=== PATIENT | female | born 1940 | race Hispanic/Latino ===

== ENCOUNTER 2017-03-08 16:21 | Emergency (ER) | payer MEDICARE, OTHER ==
[2017-03-08 16:30] VITALS: BMI 21.9
[2017-03-08 16:33] VITALS: RESP 18; O2SAT 98
[2017-03-08 18:12] VITALS: BP 159/82; PULSE 62; TEMP 97.4
--- NOTE | 2017-03-08 22:42 | C.PDOC ---
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 Patient states she accidentally tripped, fell, and attempted to break her fall using her right arm. Patient denies head injury/LOC , neck pain, back pain, extremity numbness/weakness, as well as any symptoms initially leading to her fall. Chief Complaint (Nursing): Finger,Hand,&Wrist History Per: Patient History/Exam Limitations: no limitations Onset/Duration Of Symptoms: Hrs Current Symptoms Are (Timing): Still Present Quality: "Pain" Additional History Per: Patient Past Medical History Reviewed: Historical Data, Nursing Documentation, Vital Signs Vital Signs: Last Vital Signs Temp 97.4 F L 03/08/17 18:10 Pulse 62 03/08/17 18:10 Resp 18 03/08/17 18:10 BP 159/82 H 03/08/17 18:10 Pulse Ox 98 03/08/17 22:44 - Medical History PMH: Asthma Surgical History: No Surg Hx Family History: States: Unknown Family Hx - Social History Hx Alcohol Use: No Hx Substance Use: No - Immunization History Hx Tetanus Toxoid Vaccination: No Hx Influenza Vaccination: No Hx Pneumococcal Vaccination: No Review Of Systems Except As Marked, All Systems Reviewed And Found Negative. Musculoskeletal: Positive for: Other (+right wrist pain ). Negative for: Neck Pain, Back Pain Neurological: Negative for: Weakness, Numbness Physical Exam - Physical Exam Appears: Non-toxic, No Acute Distress Skin: Normal Color, Warm, Dry Head: Atraumatic, Normacephalic, No Tenderness, No Swelling, No Abrasion, No Laceration Eye(s): bilateral: Normal Inspection Oral Mucosa: Moist Neck: Normal ROM, Supple Chest: Symmetrical, No Deformity, No Tenderness Cardiovascular: Rhythm Regular, No Murmur Respiratory: Normal Breath Sounds, No Rales, No Rhonchi, No Wheezing Extremity: No Normal ROM (limited in right wrist secondary to pain ), Capillary Refill (less than 2 seconds ), No Deformity, Swelling (minimal to right wrist ) , Other (+full ROM in right elbow and right shoulder ) Pulses: Left Radial: Normal, Right Radial: Normal Neurological/Psych: Oriented x3, Normal Speech, Normal Cognition, Normal Sensation Gait: Steady ED Course And Treatment O2 Sat by Pulse Oximetry: 98 (on RA) Pulse Ox Interpretation: Normal Medical Decision Making Medical Decision Making: Impression: 76 y/o female with R wrist pain Plan: * R wrist XR * Motrin PO * reassess and disposition Progress Notes: Right wrist XR ordered and reviewed. Patient received Motrin PO. Contacted Dr. Grove regarding case. Disposition - Disposition Referrals: Bob Monet III, MD [Staff Provider] - Disposition: HOME/ ROUTINE Disposition Time: 18:55 Condition: GOOD Additional Instructions: Thank you for letting us take care of you today. Your provider was Dr. Lovelace. You were treated for wrist fracture. The emergency medical care you received today was directed at your acute symptoms. If you were prescribed any medication, please fill it and take as directed. It may take several days for your symptoms to resolve. Return to the Emergency Department if your symptoms worsen, do not improve, or if you have any other problems. Please contact your doctor or call one of the physicians/clinics you have been referred to that are listed on the Patient Visit Information form that is included in your discharge packet. Bring any paperwork you were given at discharge with you along with any medications you are taking to your follow up visit. Our treatment cannot replace ongoing medical care by a primary care provider (PCP) outside of the emergency department. Thank you for allowing the [facility] team to be part of your care today. Please follow up with the orthopedic surgeon in 2 days for re-evaluation and treatment. Return to the emergency room if you have any concerns. Prescriptions: Ibuprofen [Motrin] 600 mg PO Q6 PRN #20 tab PRN Reason: Pain, Moderate (4-7) Instructions: Wrist Fracture in Adults (ED), Splint Care (ED) - Clinical Impression Clinical Impression: Wrist fracture, closed - Scribe Statement The provider has reviewed the documentation as recorded by the Scribe (Landy Ferguson) Provider Attestation: All medical record entries made by the Scribe were at my direction and personally dictated by me. I have reviewed the chart and agree that the record accurately reflects my personal performance of the history, physical exam, medical decision making, and the department course for this patient. I have also personally directed, reviewed, and agree with the discharge instructions and disposition.
--- NOTE | 2017-03-09 18:49 | RAD ---
PROCEDURE: Right Wrist Radiographs. HISTORY: r/o fx COMPARISON: None. FINDINGS: BONES: There is a comminuted intra-articular fracture of the distal right radius. There also appears to be a intra-articular fracture traversing the distal ulna styloid as well. . There is a cortical irregularity of the proximal aspect 5th metacarpal. . This could represent acute fracture versus sequela of old trauma. Clinical correlation with physical exam recommended. JOINTS: Multi articular degenerative osteoarthritis most notably affecting the 1st metacarpal and trapezial articulation of. Lesser degenerative changes of the remaining carpometacarpal articulations. . 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 OTHER FINDINGS: None. IMPRESSION: There is a comminuted intra-articular fracture of the distal right radius. There also appears to be a intra-articular fracture traversing the distal ulna styloid as well. . There is a cortical irregularity of the proximal aspect 5th metacarpal. . This could represent acute fracture versus sequela of old trauma. Clinical correlation with physical exam recommended. DJD as above. Note this report was placed in PA review folder for followup.
== END 2017-03-08 18:43 | disposition home or self-care (01) ==
LOC: C.ER 16:21
DX: S52.501A Unspecified fracture of the lower end of right radius, initial encounter for closed fracture (principal); S52.611A Displaced fracture of right ulna styloid process, initial encounter for closed fracture; W01.0XXA Fall on same level from slipping, tripping and stumbling without subsequent striking against object, initial encounter